=== PATIENT | male | born 1955 | race Caucasian/White ===

== ENCOUNTER 2021-05-05 05:39 | Outpatient (CLI) | payer MEDICARE, OTHER ==
[~2021-05-05] VITALS: Ht 175.3 cm; Wt 121.0 kg
[2021-05-08] MEDS ORDERED: POTA-51 PO (11:01)
[2021-05-08] MEDS ORDERED: MULT-1056 PO (11:01)
[2021-05-08] MEDS ORDERED: LISI40TA9 PO (11:01)
[2021-05-08] MEDS ORDERED: METO50TA15 PO (11:01)
[2021-05-08] MEDS ORDERED: FURO40TA4 PO (11:01)
[2021-05-08] MEDS ORDERED: AMLO-250 PO (11:01)
[2021-05-08] MEDS ORDERED: FLUT9.9S NSEACH (11:01)
[2021-05-08] MEDS ORDERED: OMEP40CA6 PO (11:01)
[2021-05-08] MEDS ORDERED: UMEC1BLS IH (11:01)
== END 2021-05-05 14:58 | disposition home or self-care (01) ==
LOC: PREOP 05:39
PROVIDERS: ATTEND Otolaryngology Otolaryngology/Facial Plastic Surgery
DX: Z01.818 Encounter for other preprocedural examination (principal)

== ENCOUNTER 2021-05-12 06:42 | Day surgery (SDC) | payer MEDICARE, OTHER ==
[~2021-05-12] VITALS: Ht 175.3 cm; Wt 121.0 kg
[2021-05-12] VITALS (9 sets, daily range): BP systolic 107–146; BP diastolic 62–85
[~2021-05-12 06:42] MED LIST: AMLO-250 PO; FLUT9.9S NSEACH; FURO40TA4 PO; LISI40TA9 PO; METO50TA15 PO; MULT-1056 PO; OMEP40CA6 PO; POTA-51 PO; UMEC1BLS IH
--- NOTE | 2021-05-12 07:10 | Progress Note-Pre Operative ---
Pre-Operative Progress Note H&P Reviewed The H&P was reviewed, patient examined and no changes noted. Date Seen by Provider: May 12, 2021 Time Seen by Provider: 06: Date H&P Reviewed: May 12, 2021 Time H&P Reviewed: :30 Pre-Operative Diagnosis: Bilat Hype of Inf Turbs of Nasal Congestion JCARLOS HOYOS MD May 12, 2021 07:10
[2021-05-12] MEDS ORDERED: LACTATED RINGERS 1,000 ML IV PRN (07:15)
[2021-05-12 07:34] LABS: BASOPHILS # (AUTO) 0.1 10^3/uL (0.0-0.1); BASOPHILS % (AUTO) 1 % (0-10); EOSINOPHILS # (AUTO) 0.3 10^3/uL (0.0-0.3); EOSINOPHILS % (AUTO) 4 % (0-10); HEMATOCRIT 39 % (40-54); HEMOGLOBIN 12.5 g/dL (13.3-17.7); LYMPHOCYTES # (AUTO) 1.5 10^3/uL (1.0-4.0); LYMPHOCYTES % (AUTO) 19 % (12-44); MEAN CORPUSCULAR HEMOGLOBIN 29 pg (25-34); MEAN CORPUSCULAR HGB CONC 32 g/dL (32-36); MEAN CORPUSCULAR VOLUME 90 fL (80-99); MONOCYTES # (AUTO) 0.8 10^3/uL (0.0-1.0); MONOCYTES % (AUTO) 10 % (0-12); NEUTROPHILS % (AUTO) 66 % (42-75); PLATELET COUNT 228 10^3/uL (130-400); WHITE BLOOD COUNT 7.7 10^3/uL (4.3-11.0)
[2021-05-12 07:46] LABS: CALCIUM 9.7 MG/DL (8.5-10.1); CREATININE SERUM 1.26 MG/DL (0.60-1.30); POTASSIUM 4.6 MMOL/L (3.6-5.0)
[2021-05-12] MEDS ORDERED: LIDOCAINE/EPI 1%-1:100,000 (XYLOCAINE) 20ML ONE (07:53)
[2021-05-12] MEDS ORDERED: PHENYLEPHRINE 0.5% NASAL SPR (NEO-SYNEPHRINE) REG ONE (07:53)
[2021-05-12] MEDS ORDERED: proPOfol 200 MG/20 ML (DIPRIVAN) VIAL IV ONE (07:56)
[2021-05-12] MEDS ORDERED: ONDANSETRON 4 MG/2 ML (SDV) Z0FRAN ONE (07:56)
[2021-05-12] MEDS ORDERED: MIDAZOLAM 2 MG/2 ML (VERSED) VIAL ONE (07:56)
[2021-05-12] MEDS ORDERED: LIDOCAINE PF 2% 5 ML (XYLOCAINE) VIAL ONE (07:56)
[2021-05-12] MEDS ORDERED: fentaNYL INJ 100 MCG/2 ML AMP ONE (07:56)
--- NOTE | 2021-05-12 08:07 | Progress Note-Post Operative ---
Post-Operative Progess Note Surgeon (s)/Pharm Tech (s) Surgeon JCARLOS HOYOS MD Pharm Tech n/a Pre-Operative Diagnosis Bilat Hype of Inf Turbs of Nasal Congestion Post-Operative Diagnosis same Post-Op Procedure Note Date of Procedure: May 12, 2021 Name of Procedure Performed: Bilat PARTIAL REDUCTION OF iNFERIOR tURBINATES Description & Findings Description and Findings: n/a Anesthesia Type LMA Estimated Blood Loss minimal Packing none. Specimen(s) collected/removed NONE JCARLOS HOYOS MD May 12, 2021 08:07
[2021-05-12] MEDS ORDERED: PROMETHAZINE INJ 25 MG/ML (PHENERGAN) AMP IVP PRN (08:15)
[2021-05-12] MEDS ORDERED: D5 1/2 NS W/KCL 20 MEQ/L 1,000 ML IV SCH (08:15)
[2021-05-12] MEDS ORDERED: HYDROcodone/APAP 5 MG/325 MG (LORTAB) TAB PO PRN (08:15)
[2021-05-12] MEDS ORDERED: SEVOFLURANE (ULTANE) 15 ML INHAL SOLN ONE (08:34)
--- NOTE | 2021-05-12 08:51 | Anesthesia-General Post-Op ---
General Patient Condition Mental Status/LOC: Same as Preop Cardiovascular: Satisfactory Nausea/Vomiting: Absent Respiratory: Satisfactory Pain: Controlled Complications: Absent Post Op Complications Complications None Follow Up Care/Instructions Patient Instructions None needed. Anesthesia/Patient Condition Patient Condition Patient is doing well, no complaints, stable vital signs, no apparent adverse anesthesia problems. No complications reported per nursing. ALEYDA LERMA CRNA May 12, 2021 08:51
[2021-05-12] MEDS ORDERED: HYDROmorphone 2 MG/ML VIAL (DILAUDID) IV ONE (09:00)
[2021-05-12] MEDS ORDERED: morphine INJ 10 MG/ML 1ML (SYR OR VIAL) IVP ONE (09:00)
[2021-05-12] MEDS ORDERED: ONDANSETRON 4 MG/2 ML (SDV) Z0FRAN IVP PRN (09:00)
[2021-05-12] MEDS ORDERED: MEPERIDINE (DEMEROL) INJ 50 MG/ML IVP ONE (09:00)
[2021-05-12] MEDS ORDERED: ACHD5005 PO (09:01)
== END 2021-05-12 10:12 | disposition home or self-care (01) ==
LOC: SDC 06:42
PROVIDERS: ATTEND Otolaryngology Otolaryngology/Facial Plastic Surgery
DX: J34.3 Hypertrophy of nasal turbinates (principal); R09.81 Nasal congestion; I10 Essential (primary) hypertension; G47.33 Obstructive sleep apnea (adult) (pediatric); J44.9 Chronic obstructive pulmonary disease, unspecified; K21.9 Gastro-esophageal reflux disease without esophagitis; E66.01 Morbid (severe) obesity due to excess calories; E78.00 Pure hypercholesterolemia, unspecified; Z68.41 Body mass index [BMI] 40.0-44.9, adult; Z79.899 Other long term (current) drug therapy; Z79.51 Long term (current) use of inhaled steroids; Z87.891 Personal history of nicotine dependence
CPT/HCPCS: 36415; 80048; 85025; 87081